=== PATIENT | female | born 1970 | race Hispanic/Latino ===

== ENCOUNTER 2018-11-29 19:06 | Emergency (ER) | payer SELFPAY ==
--- NOTE | 2018-11-29 19:54 | NUR ---
PATIENT CALLED TWICE AT 1944 AND AT 1953, NO RESPONSE. CHECKED RESTROOM .
== END 2018-11-29 20:43 | disposition short-term general hospital (02) ==
LOC: ER 19:06
DX: Z53.21 Procedure and treatment not carried out due to patient leaving prior to being seen by health care provider (principal)